=== PATIENT | male | born 1985 | race Caucasian/White ===

== ENCOUNTER 2020-11-22 09:45 | Outpatient (REF) | payer OTHER, SELFPAY ==
[2020-11-22 11:47] LABS: Alanine Aminotransferase 54 U/L (0-40); Albumin Level 4.4 g/dL (3.5-5.0); Alkaline Phosphatase 61 U/L (39-117); Anion Gap 11 (12-20); Aspartate Amino Transferase 29 U/L (5-37); Bilirubin Total 0.7 mg/dL (0.0-1.0); Blood Urea Nitrogen 10 mg/dL (9-16); Calcium 9.1 mg/dL (8.4-10.2); Carbon Dioxide 27 mmol/L (22-29); Chloride 106 mmol/L (96-108); Cholesterol 189 mg/dL; Estimated Glomerular Filt Rate > 60; Glucose Fasting 91 mg/dL (60-99); HDL Cholesterol 32 mg/dL; LDL Cholesterol Calculated 142 mg/dl; Potassium 3.9 mmol/L (3.3-5.1); Sodium 140 mmol/L (135-145); Total Protein 7.5 g/dL (6.5-8.0); Triglycerides 78 mg/dL
[2020-11-22 12:11] LABS: TSH reflex Free T4 2.28 uIU/mL (0.32-4.0)
== END 2020-11-22 09:46 | disposition home or self-care (01) ==
LOC: HO.HMGCLDS 09:45
PROVIDERS: PCP Nurse Practitioner Family; Visit Provider Nurse Practitioner Family
DX: Z00.00 Encounter for general adult medical examination without abnormal findings (principal)
CPT/HCPCS: 36415; 80053; 80061; 84443

== ENCOUNTER 2021-03-25 16:49 | Outpatient (REF) | payer OTHER, SELFPAY ==
--- NOTE | ~2021-03-25 | US_ITS ---
EXAMINATION: US VENOUS ULTRASOUND WITH DOPPLER LOWER EXTREMITY, LEFT CLINICAL INFORMATION: Left leg pain and swelling COMPARISON: None TECHNIQUE: Ultrasound of the deep veins is performed through the calf with compression sonography and color and pulse Doppler assessment. Spectral analysis with color-flow imaging is performed. The patient declined imaging of the thigh and popliteal fossa. FINDINGS: There is evidence of extensive edema. No focal fluid collection is seen. The posterior tibial vessels are patent. The peroneal veins are compressible, without evidence of thrombosis. US/US venous duplex LE LT IMPRESSION: Limited examination involving the calf demonstrates no evidence of deep vein thrombosis or focal fluid collection.
[2021-03-25 18:12] LABS: Hematocrit 42.3 % (42-52); Mean Corpuscular HGB Conc 33.1 g/dl (31.0-36.0); Mean Corpuscular Hemoglobin 28.5 pg (27.0-33.0); Mean Corpuscular Volume 86.2 fL (80-98); Mean Platelet Volume 9.7 fL (9.4-12.4); Platelet Count 236 X10*3/uL (160-400); Red Blood Count 4.91 X10*6/uL (4.60-5.80); Red Cell Distribution Width 12.6 % (11.0-16.0); White Blood Count 7.7 X10*3/uL (4.8-10.8)
[2021-03-25 18:21] LABS: D Dimer 540 NG/ML
[2021-03-25 18:33] LABS: Alanine Aminotransferase 55 U/L (0-40); Albumin Level 4.5 g/dL (3.5-5.0); Alkaline Phosphatase 56 U/L (39-117); Anion Gap 15 (12-20); Aspartate Amino Transferase 40 U/L (5-37); Bilirubin Direct 0.3 mg/dL (0.0-0.5); Bilirubin Total 0.7 mg/dL (0.0-1.0); Blood Urea Nitrogen 10 mg/dL (9-16); C Reactive Protein 4.71 mg/dL (< or = 0.50); Calcium 9.2 mg/dL (8.4-10.2); Carbon Dioxide 27 mmol/L (22-29); Chloride 100 mmol/L (96-108); Estimated Glomerular Filt Rate > 60; Glucose Random 99 mg/dL (60-115); Potassium 3.7 mmol/L (3.3-5.1); Sodium 138 mmol/L (135-145); Total Protein 8.1 g/dL (6.5-8.0)
[2021-03-26 08:19] LABS: HBS Num1 94.48 mIU/mL (0-7.99); HBc Num1 0.08 S/CO (0.00-0.79); HBsAGNum1 0.16 S/CO (0.00-0.99); Hepatitis B Core Antibody Nonreactive (Nonreactive); Hepatitis B Surface Antigen Negative (Negative); ~HepC Num1 0.09 S/CO (0.00-0.79); ~Hepatitis B Surface Antibody REACTIVE (Nonreactive); ~Hepatitis C Antibody Nonreactive (Nonreactive)
[2021-03-28 08:14] LABS: Hepatitis A Antibody IgM 0.16 Index (0-0.79); ~Hepatitis A Antibody IgM Nonreactive (Nonreactive)
== END 2021-03-25 16:50 | disposition home or self-care (01) ==
LOC: HO.US 16:49
PROVIDERS: PCP Nurse Practitioner Family; Visit Provider Internal Medicine
DX: R74.8 Abnormal levels of other serum enzymes (principal); M79.605 Pain in left leg; M79.89 Other specified soft tissue disorders
CPT/HCPCS: 36415; 80048; 80076; 85027; 85379; 86140; 86704; 86706; 86709; 86803; 87340; 93971

== ENCOUNTER 2024-07-21 14:08 | Outpatient (REF) | payer OTHER, SELFPAY ==
[2024-07-21 16:05] LABS: Appearance Urine Cloudy; Color Urine Yellow; Glucose Urine UA Negative (Negative); Leukocyte Esterase Urine Negative (Negative); Nitrite Urine Negative (Negative); PH 5.5 (5.0-9.0); Urine Blood Negative (Negative); Urine Ketones Negative (Negative); Urine Protein Negative (Neg-Trace)
[2024-07-21 16:05] LABS: MANUAL DIFF FLAG NO
[2024-07-21 16:12] LABS: Basophils Percent Auto 0.4 % (0-2); Eosinophils Absolute Auto 0.1 X10*3/uL (0.0-0.4); Eosinophils Percent Auto 1.9 % (0-4); Hemoglobin 13.7 g/dl (14.0-18.0); Imm Gran Abs Auto 0.01 X10*3/uL (0.00-0.03); Imm Gran Pct Auto 0.2 % (0.0-0.4); Lymphocytes Absolute Auto 1.9 X10*3/uL (1.2-4.9); Lymphocytes Percent Auto 38.4 % (20-40); Mean Corpuscular HGB Conc 33.4 g/dl (31.0-36.0); Mean Corpuscular Hemoglobin 29.5 pg (27.0-33.0); Mean Corpuscular Volume 88.4 fL (80.0-98.0); Mean Platelet Volume 9.3 fL (9.4-12.4); Monocytes Absolute Auto 0.4 X10*3/uL (0.1-1.2); Monocytes Percent Auto 8.7 % (2-11); Neutrophils Absolute Auto 2.4 x10*3/uL (2.0-8.3); Neutrophils Percent Auto 50.4 % (45-73); Platelet Count 243 X10*3/uL (160-400); Red Blood Count 4.64 X10*6/uL (4.60-5.80); Red Cell Distribution Width 12.1 % (11.0-16.0); White Blood Count 4.8 X10*3/uL (4.8-10.8)
[2024-07-21 16:18] LABS: Prothrombin Time 11.6 SEC (10.9-12.4)
[2024-07-21 16:20] LABS: Partial Thromboplastin Time 28.5 SEC (26.0-36.8)
[2024-07-21 16:34] LABS: Albumin Level 4.4 g/dL (3.5-5.0); Alkaline Phosphatase 51 U/L (39-117); Anion Gap 7 (12-20); Aspartate Amino Transferase 28 U/L (5-37); Bilirubin Total 0.6 mg/dL (0.0-1.0); Blood Urea Nitrogen 8 mg/dL (9-16); Calcium 8.7 mg/dL (8.4-10.2); Carbon Dioxide 29 mmol/L (22-29); Chloride 110 mmol/L (96-108); Estimated Glomerular Filt Rate > 60; Glucose Random 96 mg/dL (60-115); Potassium 3.8 mmol/L (3.3-5.1); Sodium 142 mmol/L (135-145); Total Protein 7.8 g/dL (6.5-8.0)
[2024-07-21 16:47] LABS: Alanine Aminotransferase 38 U/L (0-40)
[2024-07-21 16:51] LABS: TSH reflex Free T4 1.42 uIU/mL (0.32-4.0)
== END 2024-07-21 14:09 | disposition home or self-care (01) ==
LOC: HO.HMGCLDS 14:08
PROVIDERS: PCP Nurse Practitioner Family; Visit Provider Nurse Practitioner Family
DX: Z01.818 Encounter for other preprocedural examination (principal)
CPT/HCPCS: 36415; 80053; 81003; 84443; 85025; 85610; 85730

== ENCOUNTER 2024-07-25 13:27 | Outpatient (AMB) | payer OTHER, SELFPAY ==
--- NOTE | 2024-07-25 13:35 | A.OFFPC_ITS ---
Vital Signs 3 07/25/24 13:37 Height 5 ft 7 in Weight 230 lb 2 oz BMI 36.0 BP 118/74 Blood Pressure Location Lt brachial Position Sitting Pulse 71 Pulse Source Pulse Oximeter Pulse Oximetry (%) 99 Oxygen Delivery Method Room Air Intake Visit Reasons: Pre Op Allergies No Known Allergies Allergy (Verified 07/25/24 13:38) Medication List - Last Reconciled 07/25/24 by Belen Chowdhury MD No Known Home Meds Tobacco use date assessed: 07/25/24 Dental Screening Dental Screen Date: 07/25/24 Did you have a dental visit in the last 12 months?: Yes Did you have a dental problem in the last 6 months where you did not have access to dental care?: Yes Was dental information given to patient?: Patient has dentist HPI Pre Op 2 HPI0 Details Patient is a 38-year-old gentleman came in today for preop clearance for maxilla facial surgery which will be performed under general anesthesia. By Dr. Alvaro Mathew Date is not set yet EKG done today shows normal sinus rhythm no acute finding 65 beats per minute Labs showed normal electrolytes and kidney function GFR of 60 Random glucose 96 Normal LFTs and normal TSH Normal white count 4.8 Hemoglobin 13.7 with hematocrit of 41.0 Platelet count 243 Patient is taking good care of himself exercise daily has lost some weight eating healthy And offer no complaints. Patient is stable for maxillofacial surgery. [facility] Social History Housing: House Patient Tobacco Use Status: Never used Tobacco e-Cigarette/Vaping Use: Never Used Current occupational status: employed Cognitive needs: No Hearing needs: No Vision needs: No Questionnaire PHQ-9 Over the last 2 weeks, how often have you been bothered by any of the following problems? 1. Little interest or pleasure in doing things: not at all 2. Feeling down, depressed, or hopeless: not at all 3. Trouble falling or staying asleep, or sleeping too much: not at all 4. Feeling tired or having little energy: not at all 5. Poor appetite or overeating: not at all 6. Feeling bad about yourself - or that you are a failure or have let yourself or your family down: not at all 7. Trouble concentrating on things, such as reading the newspaper or watching television: not at all 8. Moving or speaking so slowly that other people could have noticed. Or the opposite - being so fidgety or restless that you have been moving around a lot more than usual: not at all 9. Thoughts that you would be better off or of hurting yourself in some way: not at all Total score: 0 Depression Screening Interpretation: Negative Depression Screening Done: Yes 29042 - PHQ-9 Billing: Yes Source: Developed by Drs. Danny Medellin, Joi Torres, Tab Sorto and colleagues, with an educational alysia from [email or web address]. Thrive Questionnaire Date Thrive assessed: 07/25/24 I am a: Patient What is your living situation today?: I have a steady place to live Within the past 12 months, did the food you bought not last and you didn't have the money to get more?: Never true Within the past 12 months, did you worry whether your food would run out before you got money to buy more?: Never true Do you have trouble paying for medicines?: No Do you have trouble getting transportation to medical appointments?: No Do you have trouble paying your heating and electricity bill?: No Do you have trouble taking care of your child, family member or friend?: No Do you have trouble with day-to-day activities such as bathing, preparing meals, shopping, managing finances, etc.?: No Are you currently unemployed and looking for a job?: No Are you interested in more education?: No Please select the resources that you would like help with: None Currently or been in a relationship where the following occur: I choose not to answer THRIVE Score: 0 AUDIT C Alcohol Use Questionnaire (AUDIT-C) 1. How often do you have a drink containing alcohol?: Never 3. How often do you have six or more drinks on one occasion?: Never Total Score: 0 Score Reviewed/Action Taken: Yes TAB-7 AMB Questionnaire TAB-7 Date TAB - 7 assessed: 07/25/24 Feeling nervous, anxious, or on edge: 0 = Not at all Not being able to stop or control worryin = Not at all Worrying too much about different things: 0 = Not at all Trouble relaxin = Not at all Being so restless that it is hard to sit still: 0 = Not at all Becoming easily annoyed or irritable: 0 = Not at all Feeling afraid as if something awful might happen: 0 = Not at all Total TAB-7 score (0-4 normal; 5-9 mild; 10-14 moderate; 15-21 severe): 0 Source: Developed by Drs. Danny Medellin, Joi Torres, Tab Sorto and colleagues, with an educational alysia from [email or web address]. TAB-7 Assessment Billing TAB-7 Assessment Tool: TAB-7 Assessment 75030 Review of Systems Const Denies chills and Denies fever(s) ENT Denies epistaxis and Denies nasal discharge Card Denies chest pain Resp Denies chest congestion, Denies cough and Denies hemoptysis GI Denies diarrhea and Denies nausea Skin/Breast Denies rash Neuro Reports no additional complaints Psych Reports no additional complaints Endo Reports no additional complaints Physical exam (Primary Care) Vital Signs: Last Vital Signs Pulse 71 07/25/24 13:37 BP 118/74 07/25/24 13:37 Pulse Ox 99 07/25/24 13:37 Oxygen Delivery Method Room Air 07/25/24 13:37 BMI result Body Mass Index 36.0 Tobacco/Smoking Status: Tobacco use Status Tobacco use date assessed 07/25/24 07/25/24 13:41 Patient Tobacco Use Status Never used Tobacco 07/25/24 13:41 e-Cigarette/Vaping Use Never Used 07/25/24 13:41 PHQ-9: PHQ-9 Score PHQ-9: Total score 0 07/25/24 13:41 Depression Screening Interpretation: Negative Thrive Assessment: Date of Thrive Assessment Date Thrive assessed 07/25/24 07/25/24 13:41 Currently or been in a relationship where the following occur: I choose not to answer Const General: cooperative, comfortable and no acute distress Orientation/consciousness: patient oriented x3 HENMT Other: Several teeth missing Head: Yes normocephalic Eyes General: appearance normal, both eyes and all related structures Neck Neck: Yes supple Resp Effort & Inspection: normal respiratory effort, no cough and no stridor Cardio Other: Rhythm: regular rhythm Heart sounds: S1 normal heart sound present and S2 normal heart sound present Skin General skin exam: turgor normal Neuro General: patient oriented x3, tone normal and moves all extremities Extrem Right lower extremity: no edema Left lower extremity: no edema Office Procedures EKG [id number]-[id number], Complete Results Reviewed Results Reviewed: Laboratory Tests 07/21/24 14:15 WBC 4.8 RBC 4.64 Hgb 13.7 L Hct 41.0 L Plt Count 243 Sodium 142 Potassium 3.8 Chloride 110 H Carbon Dioxide 29 BUN 8 L Creatinine 1.02 Estimated GFR > 60 Random Glucose 96 AST 28 ALT 38 Alkaline Phosphatase 51 Total Protein 7.8 Albumin 4.4 TSH 1.42 Coding Level of Care Code Est Pt Level 4 (07532) Diagnoses Pre-op evaluation Z01.818 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 Class 2 obesity due to excess calories without serious comorbidity with body mass index (BMI) of 36.0 to 36.9 in adult E66.812; E66.09; Z68.36 Obesity classification: adult class 2 (BMI 35 - 39.9) Serious obesity comorbidity presence: without serious comorbidity Body mass index: BMI 36.0-36.9 CPT Codes EKG - CPT: 45796-Tmibzjhwptyqqcxst, Complete ([id number]) Additional Codes TAB-7 Assessment Billing - TAB-7 Assessment Tool: TAB-7 Assessment 52691 ([id number]) PHQ-9 - 92760 - PHQ-9 Billing: Yes ([id number]) Assessment & Plan Assessment & Plan (1) Pre-op evaluation: Code(s): Z01.818 - Encounter for other preprocedural examination Category: Medical (2) Dental anomaly: Code(s): K00.9 - Disorder of tooth development, unspecified Category: Medical (3) Obesity due to excess calories: Code(s): E66.09 - Other obesity due to excess calories Category: Medical Qualifiers: Obesity classification: adult class 2 (BMI 35 - 39.9) Serious obesity comorbidity presence: without serious comorbidity Body mass index: BMI 36.0- 36.9 Qualified Code(s): E66.812 - Obesity, class 2; E66.09 - Other obesity due to excess calories; Z68.36 - Body mass index [BMI] 36.0-36.9, adult Plan Patient is a 38-year-old gentleman came in today for preop clearance for maxilla facial surgery which will be performed under general anesthesia. By Dr. Alvaro Mathew Date is not set yet EKG done today shows normal sinus rhythm no acute finding 65 beats per minute Labs showed normal electrolytes and kidney function GFR of 60 Random glucose 96 Normal LFTs and normal TSH Normal white count 4.8 Hemoglobin 13.7 with hematocrit of 41.0 Platelet count 243 Patient has a history of lumbar disc surgery long time ago and has recovered completely Patient is taking good care of himself exercise daily has lost some weight eating healthy And offer no complaints. Patient is stable for maxillofacial surgery. Cardiac risk low No need for antibiotic prophylaxis Patient is taking no anticoagulation medications new her No history of cardiac arrhythmia, hypertension, stroke, endocrine disease, pulmonary disease, kidney disease or obstructive sleep apnea. No history of mental disorder.
[2024-07-25 13:37] VITALS: BP 118/74; PULSE 71; O2SAT 99; BMI 36.0
== END 2024-07-25 14:12 | disposition home or self-care (01) ==
PROVIDERS: Visit Provider Internal Medicine
DX: Z01.818 Encounter for other preprocedural examination (principal); K00.9 Disorder of tooth development, unspecified; E66.812 Obesity, class 2; E66.09 Other obesity due to excess calories; Z68.36 Body mass index [BMI] 36.0-36.9, adult

== ENCOUNTER → 2024-07-25 13:27 | Outpatient (BNVA) | payer OTHER, SELFPAY | PROVIDERS: Visit Provider Internal Medicine | DX: Z01.818 Encounter for other preprocedural examination (principal); K00.9 Disorder of tooth development, unspecified; E66.812 Obesity, class 2; Z68.36 Body mass index [BMI] 36.0-36.9, adult | CPT/HCPCS: 93005; 96127; 99212 ==

== ENCOUNTER 2024-11-22 12:22 | Outpatient (AMB) | payer OTHER, SELFPAY ==
[2024-11-22 12:29] VITALS: BP 114/68; PULSE 78; RESP 18; TEMP 37.3; O2SAT 98; BMI 32.9
--- NOTE | 2024-11-22 12:29 | A.OFFPC_ITS ---
Vital Signs 11/22/24 12:29 Height 5 ft 7 in Weight 210 lb BMI 32.9 BP 114/68 Blood Pressure Location Rt brachial Position Sitting Respiration 18 Pulse 78 Pulse Source Pulse Oximeter Temp 99.2 F Temp Source Oral Pulse Oximetry (%) 98 Oxygen Delivery Method Room Air Intake Visit Reasons: Annual PE-update insurance Intake Note: Pt is here today for PE. Allergies No Known Allergies Allergy (Verified 11/22/24 12:47) Medication List - Last Reconciled 11/22/24 by JERE Concepcion No Known Home Meds Tobacco use date assessed: 11/22/24 Dental Screening Dental Screen Date: 11/22/24 Did you have a dental visit in the last 12 months?: Yes Did you have a dental problem in the last 6 months where you did not have access to dental care?: No Was dental information given to patient?: Patient has dentist HPI Annual PE-update insurance HPI Details History of Present Illness The patient is a 38-year-old male presenting for a routine physical examination and wellness evaluation. He reports significant weight loss since the last appointment several years ago, achieved through dietary modification with intermittent fasting. He feels improved and reports feeling in good health. Additionally, the patient recently underwent dental extractions and is awaiting dentures. He denies any systemic symptoms, gastrointestinal issues, cardiovascular symptoms, or genitourinary complaints. There is also no indication of mental health issues, as he denies any suicidal or homicidal thoughts. The patient expresses a positive sense of well-being. Health Maintenance - Encouraged the patient to continue tary management with intermittent fasting, considering his positive response. - Recommended scheduling screening labs, including fasting bloodwork, in the near future. - Discussed the importance of regular de ntal follow-ups following the recent tooth extraction and in preparation for receiving dentures. Social History - Patient engages in intermittent fastin g as part of his dietary habits and reports significant weight loss as a result. - Recently had teeth extracted and is an ticipating receiving dentures. Review of Systems - Constitutional: Denies fever or chills . - Eyes: Denies blurred vision. - Cardiovascular: Denies chest pain. - Respiratory: Denies shortness of breat h. - Gastrointestinal: Denies abdominal jose a n, blood in stool, constipation, or diarrhea. - Genitourinary: Denies urinary issues. - Psychiatric: Denies suicidal ideation or homicidal ideation. Physical Exam General: Cooperative, healthy appearing, comfortable, no acute distress and well developed Orientation: Patient oriented x3 Limitations: No limitations Head: Normal to inspection Ears: Hearing grossly normal bilaterally Nose: Normal external nose present Face and sinus: Normal facial exam Eyes: Appearance normal, both eyes and all related structures Neck: Normal visual inspection and Yes full ROM Respiratory: Normal respiratory effort and able to speak in complete sentences. Clear to auscultation bilaterally Cardiovascular: Regular rate and rhythm. Normal S1 and S2 GI: Normal to inspection. Soft to palpation and nontender Skin: No rashes or lesions noted Neuro: Patient oriented x3 Extremities: Normal to inspection Results Plan The patient is advised to continue with the current dietary regimen involving intermittent fasting, given its effectiveness in achieving weight loss without adverse effects. Screening labs, including fasting bloodwork, should be scheduled to monitor his overall health. Follow-up regarding recent dental extractions and future denture placement was emphasized, ensuring adequate dental care. Discussion Notes During this visit, I discussed the effectiveness of the patient's intermittent fasting diet, emphasizing its role in improving his overall well-being and significant weight loss. We talked about the importance of regular health screenings, including upcoming fasting labs, to ensure continued health status monitoring. The patient was also advised on the need for appropriate follow-up care after dental procedures, especially in anticipation of new dentures. Patient Instructions - Continue with your current intermitten t fasting diet, and eating better as you are. - Schedule your fasting bloodwork in the near future. - Follow your dentist's instructions reg arding care for recent extractions and upcoming denture fittings. [facility] Social History Housing: House Patient Tobacco Use Status: Never used Tobacco e-Cigarette/Vaping Use: Never Used service: No Current occupational status: employed Cognitive needs: No Hearing needs: No Vision needs: No Questionnaire Thrive Questionnaire Date Thrive assessed: 07/15/24 I am a: Patient What is your living situation today?: I have a steady place to live Within the past 12 months, did the food you bought not last and you didn't have the money to get more?: Never true Within the past 12 months, did you worry whether your food would run out before you got money to buy more?: Never true Do you have trouble paying for medicines?: No Do you have trouble getting transportation to medical appointments?: No Do you have trouble paying your heating and electricity bill?: No Do you have trouble taking care of your child, family member or friend?: No Do you have trouble with day-to-day activities such as bathing, preparing meals, shopping, managing finances, etc.?: No Are you currently unemployed and looking for a job?: No Are you interested in more education?: No Please select the resources that you would like help with: None Currently or been in a relationship where the following occur: I choose not to answer THRIVE Score: 0 AUDIT C Alcohol Use Questionnaire (AUDIT-C) 1. How often do you have a drink containing alcohol?: Never 3. How often do you have six or more drinks on one occasion?: Never Total Score: 0 Score Reviewed/Action Taken: No ATB-7 AMB Questionnaire TAB-7 Date TAB - 7 assessed: 07/25/24 Source: Developed by Drs. Danny Medellin, Joi Torres, Tab Sorto and colleagues, with an educational alysia from [employer]. Physical exam (Primary Care) Vital Signs: Last Vital Signs Temp 99.2 F 11/22/24 12:29 Pulse 78 11/22/24 12:29 Resp 18 11/22/24 12:29 BP 114/68 11/22/24 12:29 Pulse Ox 98 11/22/24 12:29 Oxygen Delivery Method Room Air 11/22/24 12:29 BMI result Body Mass Index 32.9 Tobacco/Smoking Status: Tobacco use Status Tobacco use date assessed 11/22/24 11/22/24 12:35 Patient Tobacco Use Status Never used Tobacco 11/22/24 12:35 e-Cigarette/Vaping Use Never Used 11/22/24 12:35 Thrive Assessment: Date of Thrive Assessment Date Thrive assessed 07/15/24 11/22/24 12:35 Currently or been in a relationship where the following occur: I choose not to answer Coding Level of Care Code Est Pt Prev Care 40-64y(41119) Diagnoses Physical exam Z00.00 Assessment & Plan Assessment & Plan (1) Physical exam: Code(s): Z00.00 - Encounter for general adult medical examination without abnormal findings Category: Medical Plan . Orders: Orders Complete Blood Count Auto Diff Today Z00.00 - Encounter for general adult medical examination without abnormal findings UA CC w/rflx Micro + Cult Today Z00.00 - Encounter for general adult medical examination without abnormal findings Lipid Panel Today Z00.00 - Encounter for general adult medical examination without abnormal findings Vitamin D 25-OH Total Today Z00.00 - Encounter for general adult medical examination without abnormal findings Comprehensive [place]. Panel Fast Today Z00.00 - Encounter for general adult medical examination without abnormal findings TSH reflex Free T4 Today Z00.00 - Encounter for general adult medical examination without abnormal findings
== END 2024-11-22 13:01 | disposition home or self-care (01) ==
PROVIDERS: PCP Nurse Practitioner Family; Visit Provider Nurse Practitioner Family
DX: Z00.00 Encounter for general adult medical examination without abnormal findings (principal)

== ENCOUNTER → 2024-11-22 12:22 | Outpatient (BNVA) | payer OTHER, MEDICAID, SELFPAY | PROVIDERS: PCP Nurse Practitioner Family; Visit Provider Nurse Practitioner Family ==